=== PATIENT | female | born 1980 ===

== ENCOUNTER → 2020-09-17 | Day surgery (SDC) | payer OTHER | END | disposition home or self-care (01) | LOC: ADM 10:30 → CIR.AMB 10:30 | PROVIDERS: ATTEND Obstetrics & Gynecology Obstetrics | DX: N93.8 Other specified abnormal uterine and vaginal bleeding (principal); Z20.822 Contact with and (suspected) exposure to COVID-19 ==

== ENCOUNTER 2024-12-16 08:06 | Inpatient (IN) | payer OTHER ==
[~2024-12-16] VITALS: Ht 157.5 cm; Wt 68.0 kg
[2024-12-16 09:25] LABS: BASO % 0.8 % (0.1-1.2); EOS # 0.47 (0.04-0.54); EOS % 5.5 % (0.7-7.0); HEMOGLOBIN 12.6 g/dL (11.2-15.7); LYMPH # 1.44 (1.18-3.74); MEAN CORPUSCULAR HEMOGLOBIN 31.3 pg (25.6-32.2); MONO # 0.91 (0.24-0.82); MONO % 10.7 % (4.7-12.5); NEUT # 5.57 (1.56-6.13); NEUT % 65.8 % (34.0-71.1); PLATELET COUNT 381 K/uL (163-369); RED BLOOD COUNT 4.03 M/uL (3.93-5.22); RED CELL DISTRIBUTION WIDTH 13.1 % (11.6-14.4)
[2024-12-16 09:42] LABS: PH,URINE 7.5 (5.0-8.0); URINE APPEARANCE Clear; URINE BILIRRUBIN Negative (NEGATIVE); URINE BLOOD Negative; URINE COLOR Yellow; URINE GLUCOSE Negative (NEGATIVE); URINE KETONE Trace (NEGATIVE); URINE LEUKOCYTE Trace; URINE NITRATE Negative; URINE PROTEIN Negative (NEGATIVE); URINE UROBILINOGEN 0.2 E.U./dl
[2024-12-16 09:45] VITALS: BP 135/84
[2024-12-16 09:46] VITALS: BP 128/76
[2024-12-16 09:46] LABS: INR 0.99; PARTIAL THROMBOPLASTIN TIME 29.2 SECONDS (22.0-34.0); PROTHROMBIN TIME 10.8 SECONDS (9.0-11.5)
[2024-12-16 09:48] LABS: URINE BACTERIA 1300.9 uL (0.0-1933); URINE CAST 0.14 uL (0.0-1.40); URINE EPITHELIAL CELLS 12.8 uL (0.0-38.8); URINE RBC 3.5 uL (0.0-20.8); URINE WBC 4.1 uL (0.0-23.2)
[2024-12-16 10:45] LABS: ALBUMIN 3.7 gm/dL (3.4-5.0); BILIRUBIN TOTAL 0.46 mg/dL (0.3-1.2); CALCIUM 9.3 mg/dL (8.5-10.1); CREATININE SERUM 0.8 mg/dL (0.55-1.02); GFR 77.22; POTASSIUM 4.65 mEq/L (3.5-5.1); TOTAL PROTEIN 7.7 gm/dL (6.4-8.2); TSH 1.1 uIU/mL (0.358-3.74)
[2024-12-22] MEDS ORDERED: CEFOXITIN SODIUM 2,000 MG VIAL IV ONE (07:16)
[2024-12-22] MEDS ORDERED: POVIDONE-IODINE 118 ML BOTT TOP ONE (10:03)
[2024-12-22] MEDS ORDERED: KETOROLAC TROMETHAMINE 60 MG VIAL IM NR (12:30)
[2024-12-22] MEDS ORDERED: RINGERS SOLUTION,LACTATED 1,000 ML IV SCH (12:30)
[2024-12-22] MEDS ORDERED: MORPHINE SULFATE 4 MG/ML CARTRIDGE IV SCH (13:00)
[2024-12-22] MEDS ORDERED: MORPHINE SULFATE 4 MG/ML VIAL IV ONE ×2 (13:15→15:00)
[2024-12-22] MEDS ORDERED: ONDANSETRON HCL 2 MG/ML VIAL ONE (14:07)
[2024-12-22] MEDS ORDERED: KETOROLAC TROMETHAMINE 60 MG VIAL IM ONE (14:07)
[2024-12-22] MEDS ORDERED: ONDANSETRON HCL 2 MG/ML VIAL IV ONE (14:15)
[2024-12-22 14:45] LABS: BASO % 0.4 % (0.1-1.2); EOS # 0.09 (0.04-0.54); EOS % 0.8 % (0.7-7.0); HEMOGLOBIN 12.1 g/dL (11.2-15.7); LYMPH # 1.18 (1.18-3.74); MEAN CORPUSCULAR HEMOGLOBIN 31.6 pg (25.6-32.2); MONO # 0.96 (0.24-0.82); MONO % 8.1 % (4.7-12.5); NEUT # 9.49 (1.56-6.13); NEUT % 80.3 % (34.0-71.1); PLATELET COUNT 349 K/uL (163-369); RED BLOOD COUNT 3.83 M/uL (3.93-5.22); RED CELL DISTRIBUTION WIDTH 12.7 % (11.6-14.4)
[2024-12-22] MEDS ORDERED: ONDANSETRON HCL 2 MG/ML VIAL IV SCH (17:00)
[2024-12-22 17:08] VITALS: BP 128/76
[2024-12-23 01:00] VITALS: BP 106/69
[2024-12-23 08:56] VITALS: BP 124/80
[2024-12-23] MEDS ORDERED: NAPR500T14 PO (09:06)
[2024-12-23] MEDS ORDERED: Tylenol #3 PO (09:06)
[2024-12-23] MEDS ORDERED: ACETAMINOPHEN WITH CODEINE 1 UDTAB TABLET PO ONE (09:15)
[2024-12-23] MEDS ORDERED: NAPROXEN 500 MG TABLET PO NR (10:00)
== END 2024-12-23 10:04 | disposition home or self-care (01) | DRG 743 ==
LOC: O/R 12-22 08:05 → OB/GYN 12-22 08:05 → SURH 12-22 08:15 → OB/GYN 12-22 12:36
PROVIDERS: ADMIT Obstetrics & Gynecology; ATTEND Obstetrics & Gynecology
PROC: 0UT77ZZ Resection of Bilateral Fallopian Tubes, Via Natural or Artificial Opening (ICD-10-PCS; 2024-12-22)
PROC: 0USG4ZZ Reposition Vagina, Percutaneous Endoscopic Approach (ICD-10-PCS; 2024-12-22)
PROC: 0JQC0ZZ Repair Pelvic Region Subcutaneous Tissue and Fascia, Open Approach (ICD-10-PCS; 2024-12-22)
PROC: 0TJB8ZZ Inspection of Bladder, Via Natural or Artificial Opening Endoscopic (ICD-10-PCS; 2024-12-22)
PROC: 0UT97ZZ Resection of Uterus, Via Natural or Artificial Opening (ICD-10-PCS; principal; 2024-12-22 09:15)
DX: D25.1 Intramural leiomyoma of uterus (principal); N81.11 Cystocele, midline; N92.0 Excessive and frequent menstruation with regular cycle; N80.03 Adenomyosis of the uterus